=== PATIENT | male | born 2000 | race African-American/Black ===

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

== ENCOUNTER 2023-02-22 11:18 | Outpatient (REF) | payer OTHER, SELFPAY | END 2023-02-22 11:19 | disposition home or self-care (01) | LOC: HO.HOSX 11:18 | PROVIDERS: Visit Provider Orthopaedic Surgery | DX: Z13.89 Encounter for screening for other disorder (principal) ==

== ENCOUNTER 2023-03-04 09:09 | Outpatient (AMB) | payer OTHER, SELFPAY ==
--- NOTE | 2023-03-04 09:34 | MHC.OFFVIS ---
Intake Vital Signs 03/04/23 09:37 Height 6 ft 3 in Weight 238 lb BMI 29.7 Handedness Right Intake Visit Reasons: FC-right 5th metacarpal fracture Intake Note: Neri is a 23 year old right hand dominant male who presents today for a evaluation of his right wrist fx, DOI 01/14/23. Patient reports he punched a wall. He states after her punched the wall a lump appeared on the dorsal aspect of the hand. Paitent reports it dose cause him pain when he touches it. 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 Physical Exam Vital Signs: BMI result Body Mass Index 29.7 Const General: cooperative, healthy appearing and no acute distress Orientation/consciousness: oriented to person and oriented to place HEENT Head: Yes normocephalic and Yes atraumatic Eyes EOM: EOMs intact bilaterally Resp Effort & Inspection: normal respiratory effort and able to speak in complete sentences Cardio Jugular venous distension: no JVD Skin General skin exam: turgor normal Rashes: no rashes Neuro General: oriented to person and oriented to place Extrem Other: Evaluation of right Upper Extremity: Neuro: Median, ulnar, radial nerves motor and sensory intact. Vascular: Cap refill brisk. ROM: Can bring fingers closed to a fist and back out to full or nearly full extension. He can make a tight fist with good strength and no pain. Can oppose thumb to all fingertips Smooth and painless wrist ROM He has a fairly large dorsal bump and the shaft of the 5th metacarpal. No rotational malalignment seen with finger flexion and extension. The fracture site is nontender to firm palpation. When I try to straighten out the deformity I do feel a slight click in the fracture area which is likely because of the delayed union. This is not particularly painful to the patient and I am not able to move it significantly enough to correct the deformity. No swelling or ecchymosis at this time. Skin: No lacerations or abrasions. General: No eccymosis. No erythema or evidence of infection. Radiographs: Three views of his right hand show a right 5th metacarpal fracture that appeared to have been healing. Possible refractured ir versus malunion with about 15-18 degrees of apex dorsal angulation Psych Appearance: grossly normal Affect: normal affect Attitude: cooperative Office Procedures Fracture Care Details: Fracture care metacarpal [id number] Fracture Billing Code: Fracture Billing Code Assessment & Plan Assessment & Plan (1) Disp fx shaft fifth metacarpal bone right hand w/delayed healing: Code(s): S62.326G - Displaced fracture of shaft of fifth metacarpal bone, right hand, subsequent encounter for fracture with delayed healing Plan Assessment and plan: 1. Right 5th metacarpal shaft fracture heading towards delayed union Date of injury approximately 01/16/2023 This is the 1st time the patient has been seen here. He treated it with a splint for a while but has not been wearing it for a while. 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 I educated him about this condition We discussed operative and non operative treatment options including possible corrective osteotomy. He feels he can live with the bump. I also think it is likely best to let this continue on to union. He does smoke marijuana but says that he could stop the wanted to. We will therefore place him in a short-arm cast for 3 weeks Follow-up in 3 weeks with new radiographs. I think it is likely at that time he can discontinue the cast. OT if felt necessary. Orders: Orders XR hand RT min 3V Today M79.641 - Pain in right hand Coding Level of Care Code New Pt Level 3 (82295) Diagnoses Disp fx shaft fifth metacarpal bone right hand w/delayed healing S62.326G CPT Codes Fracture Care - Fracture Billing Code: Fracture Billing Code ([id number])
[2023-03-04 09:37] VITALS: BMI 29.7
== END 2023-03-04 10:47 | disposition home or self-care (01) ==
PROVIDERS: PCP Pediatrics; Visit Provider Orthopaedic Surgery
DX: S62.326A Displaced fracture of shaft of fifth metacarpal bone, right hand, initial encounter for closed fracture (principal)
CPT/HCPCS: 26600; 99204

== ENCOUNTER 2023-03-04 10:27 | Outpatient (REF) | payer OTHER, SELFPAY ==
--- NOTE | ~2023-03-04 | XR_ITS ---
EXAMINATION: XR HAND, RIGHT CLINICAL INFORMATION: Pain. COMPARISON: None available. TECHNIQUE: PA, lateral, and oblique views of the right hand. FINDINGS: There is a healing transverse fracture of the midshaft of the right fifth metacarpal. This shows mild apex medial angulation and abundant periosteal callus formation. The fracture line remains visible. No dislocation is seen. There is no abnormal bone erosion. The proximal and distal carpal rows are intact. No focal soft tissue swelling, gas or foreign body is seen. XR/XR hand RT min 3V IMPRESSION: A healing transverse fracture is seen of the midshaft of the right fifth metacarpal bone, with mild apex medial angulation.
== END 2023-03-04 10:28 | disposition home or self-care (01) ==
LOC: HO.HOSX 10:27
PROVIDERS: Visit Provider Orthopaedic Surgery
DX: S62.326G Displaced fracture of shaft of fifth metacarpal bone, right hand, subsequent encounter for fracture with delayed healing (principal)
CPT/HCPCS: 26600; 73130

== ENCOUNTER 2023-03-23 08:30 | Outpatient (AMB) | payer OTHER, SELFPAY ==
[2023-03-23 08:32] VITALS: BMI 29.7
--- NOTE | 2023-03-23 08:32 | A.OFFVIS_ITS ---
Intake Vital Signs 03/23/23 08:32 Height 6 ft 3 in Weight 238 lb BMI 29.7 Intake Visit Reasons: ov- right 5th metacarpal fracture Intake Note: Neri 23 yr old male who is - hand dominant, presents today for his follow up visit for his right 5th metacarpal fracture 01/14/23 s/p punching a wall. Cast removed in office and xray updated as well. Allergies No Known Allergies Allergy (Verified 03/23/23 08:42) HPI ov- right 5th metacarpal fracture HPI Details Neri is a 23 year old right hand dominant man who returns for a follow up of his right 5th metacarpal fracture, DOI: 01/16/23 from punching a wall. 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 He says he is doing well overall and is happy to be out of his cast. 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 Review of Systems Const All systems reviewed & are unremarkable except as noted in HPI and below Physical Exam Vital Signs: BMI result Body Mass Index 29.7 Const General: cooperative, healthy appearing and no acute distress Orientation/consciousness: oriented to person and oriented to place HEENT Head: Yes normocephalic and Yes atraumatic Eyes EOM: EOMs intact bilaterally Resp Effort & Inspection: normal respiratory effort and able to speak in complete sentences Cardio Jugular venous distension: no JVD Skin General skin exam: turgor normal Rashes: no rashes Neuro General: oriented to person and oriented to place Extrem Other: Evaluation of Right Upper Extremity: The patient is alert, oriented, and in no acute distress Neuro: Median, Ulnar, Radial nerves motor and sensory intact and sensation is n ormal to the tips of all digits Vascular: Cap refill brisk ROM: Can bring fingers closed to a fist and back out to full extension. He can make a tight fist with good strength and no pain. He has a fairly large dorsal bump and the shaft of the 5th metacarpal. No rotational mal-alignment seen with finger flexion and extension. The fracture site is non-tender to firm palpation. Radiographs: 3 views of his right hand show a right 5th metacarpal fracture that appeared to have been healing. There is a 5th metacarpal shaft fracture with good evidence of interval bony healing and ~15-18 degrees of apex dorsal angulation. Psych Appearance: grossly normal Affect: normal affect Attitude: cooperative Assessment & Plan Assessment & Plan (1) Disp fx shaft fifth metacarpal bone right hand w/delayed healing: Code(s): S62.326G - Displaced fracture of shaft of fifth metacarpal bone, right hand, subsequent encounter for fracture with delayed healing Plan Assessment and plan: 1. Right 5th metacarpal shaft fracture heading towards delayed union DOI: ~01/16/23 I educated him about this condition He has good evidence of interval bony healing seen today We discussed treatment options for the bump on the dorsal aspect of his hand, including possible corrective osteotomy. He feels he can live with the bump and is not interested in surgery at this time. 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 He will follow up prn Scribed for Rosie Munoz MD by Josr Read, medical reimbursement manager, on 03/23/23 at 9:05 AM, EST. Orders: Orders XR hand RT min 3V Today M79.641 - Pain in right hand Coding Level of Care Code Global (47966) Diagnoses Disp fx shaft fifth metacarpal bone right hand w/delayed healing S62.326G
== END 2023-03-23 09:01 | disposition home or self-care (01) ==
PROVIDERS: PCP Pediatrics; Visit Provider Orthopaedic Surgery
DX: S62.326G Displaced fracture of shaft of fifth metacarpal bone, right hand, subsequent encounter for fracture with delayed healing (principal)
CPT/HCPCS: 99024

== ENCOUNTER 2023-03-23 15:09 | Outpatient (REF) | payer OTHER, SELFPAY ==
--- NOTE | ~2023-03-23 | XR_ITS ---
EXAMINATION: XR HAND, RIGHT CLINICAL INFORMATION: Pain. COMPARISON: 03/04/2020 TECHNIQUE: PA, lateral, and oblique views of the right hand. FINDINGS: Redemonstration of a healing transverse fracture of the midshaft of the right fifth metacarpal with mild apex medial angulation and abundant periosteal callus formation. The fracture line remains visible, but less dense US, suggesting some interval callus formation. Alignment maintained. Bone mineralization is normal. XR/XR hand RT min 3V IMPRESSION: Healing transverse fracture of midshaft of the right fifth metacarpal.
== END 2023-03-23 15:10 | disposition home or self-care (01) ==
LOC: HO.HOSX 15:09
PROVIDERS: Visit Provider Orthopaedic Surgery
DX: S62.326G Displaced fracture of shaft of fifth metacarpal bone, right hand, subsequent encounter for fracture with delayed healing (principal)
CPT/HCPCS: 73130